=== PATIENT | female | born 1935 | race Asian ===

== ENCOUNTER 2017-01-28 16:37 | Inpatient (IN) | END 2017-02-07 15:57 | disposition home or self-care (01) | DRG 153 | DX: J39.1 Other abscess of pharynx (principal); N17.9 Acute kidney failure, unspecified; K52.1 Toxic gastroenteritis and colitis; B37.0 Candidal stomatitis; R13.10 Dysphagia, unspecified; T36.95XA Adverse effect of unspecified systemic antibiotic, initial encounter; J38.7 Other diseases of larynx; I10 Essential (primary) hypertension; D72.829 Elevated white blood cell count, unspecified; I25.10 Atherosclerotic heart disease of native coronary artery without angina pectoris ==